=== PATIENT | female | born 2000 | race American Indian/Alaskan Native ===

== ENCOUNTER 2020-02-18 13:17 | Emergency (ER) | payer OTHER ==
[~2020-02-18] VITALS: Ht 152.4 cm; Wt 75.0 kg
[~2020-02-18 13:17] MED LIST: BACTRIM DS 8001 TAB PO
[2020-02-18 13:30] VITALS: TEMP 98.4
[2020-02-18 13:44] LABS: COLLECTION METHOD CLEAN CATCH
[2020-02-18 13:53] LABS: MUCOUS Present /lpf; PH 5 (5-8); SQUAMOUS EPITHELIAL 0-2 /hpf; URINE APPEARANCE Clear; URINE BACTERIA None Seen /hpf; URINE BILIRUBIN Negative (NEGATIVE); URINE BLOOD 3+ (NEGATIVE); URINE COLOR Yellow; URINE GLUCOSE Negative (NEGATIVE); URINE KETONE Negative (NEGATIVE); URINE LEUKOCYTE ESTERASE Negative (NEGATIVE); URINE NITRATE Negative (NEGATIVE); URINE PROTEIN(semi-quant) Negative (NEGATIVE); URINE RBC 20-50 /hpf; URINE UROBILINOGEN Negative (NEGATIVE)
[2020-02-18] MEDS ORDERED: CEPHALEXIN500 M1 PO (14:21)
[2020-02-18 14:55] VITALS: BP 128/78; PULSE 84
[2020-02-20] MEDS ORDERED: CIPRO 500MG TA500 MG PO (11:51)
== END 2020-02-18 14:56 | disposition home or self-care (01) ==
LOC: COL.ER 13:17
PROVIDERS: Physician Assistant
DX: N39.0 Urinary tract infection, site not specified (principal); Z87.42 Personal history of other diseases of the female genital tract